=== PATIENT | male | born 1930 | race Hispanic/Latino ===

== ENCOUNTER 2017-02-19 09:55 | Outpatient (CLI) | payer MEDICARE ==
[2017-02-19] MEDS ORDERED: NACL ONE (11:05)
--- NOTE | 2017-02-19 11:52 | Cat Scan Report ---
CT CHEST WITH CONTRAST: HISTORY: Right pleural effusion. TECHNIQUE: Helical CT following IV contrast. Sagittal and coronal reformatted images. FINDINGS: There is a small right pleural effusion which appears to be loculated laterally measuring approximately 13 x 4 cm in axial plane. No left pleural effusion. There are moderate centrilobular emphysematous changes in both lungs. No evidence for mass, nodule, infiltrate or pneumothorax. Heart and mediastinal structures are within normal limits. No thoracic adenopathy. Mild aortic calcifications are noted. No aneurysm or dissection. Thoracic spondylosis. No suspicious bony lesion or fracture. IMPRESSION: Small right pleural effusion which appears to be loculated. Please see above. Emphysema.
== END 2017-02-19 09:56 | disposition home or self-care (01) ==
LOC: CT 09:55
PROVIDERS: ATTEND Internal Medicine Critical Care Medicine
DX: J90 Pleural effusion, not elsewhere classified (principal); J43.9 Emphysema, unspecified; I70.0 Atherosclerosis of aorta; M47.894 Other spondylosis, thoracic region; Z87.891 Personal history of nicotine dependence
CPT/HCPCS: 36415; 71260; 82565; 84520; Q9967